=== PATIENT | male | born 1980 | race Caucasian/White ===

== ENCOUNTER 2019-07-18 15:19 | Emergency (ER) | payer OTHER ==
[2019-07-18 15:46] VITALS: TEMP 97.6
[2019-07-18] MEDS: HYDROcodone 7.5MG/APAP 325MG 1 EA TAB PO ONE (15:54)
[2019-07-18] MEDS: SULFA/TRIMETH 800/160 (DS) TAB 1 EA TAB PO ONE (15:54)
--- NOTE | 2019-07-18 15:54 | RAD ---
EXAM DESCRIPTION: Fingers,Left CLINICAL HISTORY: crush injury digits 2 3 COMPARISON: None. TECHNIQUE: 3 views left FINDINGS: Soft tissue swelling is observed in the second and third digits most pronounced about the proximal interphalangeal joints. A small metallic foreign body is observed along the radial side of the proximal interphalangeal joint of the second digit. Exam reveals minimal calcification along the radial side of the metacarpal phalangeal joint of the third digit. This may be the result of remote injury. No acute fracturing is detected. IMPRESSION: Soft tissue injury is observed in the second third digits about the proximal interphalangeal joints. There is also a small metallic foreign body adjacent to the proximal interphalangeal joint of the second digit. Electronically signed by: El Joe MD 07/18/2019 3:53 PM [facility]
--- NOTE | 2019-07-18 16:08 | ED.PDOC ---
History of Present Illness - General Chief Complaint: Skin/Abrasion/Tear Stated Complaint: left hand middle finger cut open at work Time Seen by Provider: 07/18/19 15:24 Source: patient Exam Limitations: no limitations - History of Present Illness Initial Comments: The patient is a 39-year-old male presenting to emergency room after having sustained a crush injury to the second and third digits of the left hand while working at the [employer]. Sensation does appear to be grossly intact. Range of motion also appears to be grossly intact. He does have mild swelling of the second digit but no laceration and fairly significant swelling of the third digit with a laceration to the lateral aspect of the palmar side of the third digit approximately an inch in length. Capillary refill is within normal limits. No evidence of vascular compromise at this point. There is significant swelling around the proximal interphalangeal joint. No crepitus. Timing/Duration: momentarily Severity: severe Improving Factors: nothing Worsening Factors: movement Associated Symptoms: denies symptoms Allergies/Adverse Reactions: Allergies NO KNOWN ALLERGY Allergy (Verified 01/31/16 16:19) Home Medications: Ambulatory Orders Sulfa/Trimeth 800/160 (Ds) Tab [Bactrim DS Tab] 1 ea PO BID #14 tab 07/18/19 Tramadol HCl 50 mg PO Q8HR PRN #20 tab 07/18/19 Review of Systems - Review of Systems Constitutional: States: no symptoms reported EENTM: States: no symptoms reported Respiratory: States: no symptoms reported Cardiology: States: no symptoms reported Gastrointestinal/Abdominal: States: no symptoms reported Genitourinary: States: no symptoms reported Musculoskeletal: States: see HPI Skin: States: see HPI Neurological: States: no symptoms reported Endocrine: States: no symptoms reported All other Systems: No Change from Baseline Past Medical History (General) - Patient Medical History Hx Asthma: No Hx Congestive Heart Failure: No Hx Hypertension: No Hx Diabetes: No - Vaccination History Hx Tetanus, Diphtheria Vaccination: No Hx Influenza Vaccination: No Hx Pneumococcal Vaccination: No - Social History Hx Tobacco Use: Yes - Activities of Daily Living Hospice Agency (if applicable):: None - Female History Patient is a Female of Child Bearing Age (10 -59 yrs old): No - Triage Comment ED Triage Comment: pt ambulated to ED trauma room without diffiuclty holding pressure to middle finger of left hand with personal shirt. pt voices he smashed his left hand fingers with drill collar at work. laceration to left side of left middle finger with small amount blood actively oozing from site. pt holding pressure with personal shirt. swelling noted to knuckle of middle finger to the left hand. pt conversing without difficulty at this time. Family Medical History - Family History Father Family History: Unknown Living Status: Unknown Physical Exam - Physical Exam General Appearance: Alert, No apparent distress Eye Exam: bilateral normal Ears, Nose, Throat: hearing grossly normal, normal pharynx - poor dentition Neck: full range of motion, supple Respiratory: no respiratory distress, no accessory muscle use Cardiovascular/Chest: normal peripheral pulses, no edema Peripheral Pulses: radial,right: 2+, radial,left: 2+ Rectal Exam: deferred Extremity: no pedal edema, no calf tenderness, normal capillary refill, other - ee history of present illness. There does not appear to be any tendon laceration though movement is somewhat limited at this point secondary to swelling. Neurologic: [employer] glaz[employer] II-XII nml as tested, no motor/sensory deficits, alert, normal mood/affect, oriented x 3 Skin Exam: other - bruising is developing over the second and third digits. Comments: Vital Signs - 24 hr 07/18/19 07/18/19 07/18/19 15:36 15:55 15:56 Temperature 97.6 F Pulse Rate [ 103 H 87 brachial] Respiratory 18 20 18 Rate Blood Pressure 150/91 140/96 [Left Arm] O2 Sat by Pulse 98 99 Oximetry Progress - Progress Progress: 07/18/19 16:10 the patient's 39-year-old male presenting to the emergency room secondary to a crush injury with associated laceration to the third digit of the left hand. There is also mild crush injury to the second digit. No evidence of any fracture or dislocation. No evidence of any tendon laceration. No evidence of any neurological deficit at this point. No evidence of vascular compromise at this point. Given the significant swelling to the third digit, I'm not going to repair the laceration today. the patient will return on Thursday for laceration repair once his swelling is subsiding. This is being done to prevent any vascular compromise over the next 24-48 hours, as swelling peaks. the wound was irrigated with approximately 750 cc of normal saline. The patient received a dose of Bactrim and a tetanus shot. the patient will change wet-to-dry dressings twice daily until the repair on Thursday. ER warnings were given for any worsening of symptoms. He will be written for some tramadol as well for pain control. Bactrim will be used as the antibiotic of choice for infection prevention. gregg hernández [id number] - Results/Orders Results/Orders: x-ray left hand shows no evidence of any fracture or dislocation. There is a old foreign body noted on the x-ray does not correspond with the current injury location. Departure - Departure Clinical Impression: Crush injury to finger Qualifiers: Encounter type: initial encounter Qualified Code(s): S67.10XA - Crushing injury of unspecified finger(s), initial encounter Laceration of finger of left hand Qualifiers: Encounter type: initial encounter Finger: middle finger Damage to nail status: without damage Foreign body presence: without foreign body Qualified Code(s): S61.213A - Laceration without foreign body of left middle finger without damage to nail, initial encounter Disposition: Discharge to Home or Self Care Condition: Fair Departure Forms: ED Discharge - Pt. Copy, Patient Portal Self Enrollment Instructions: Wound Care, Crush Injury (DC) Diet: regular diet Activity: no pushing/pulling with affected limb Prescriptions: Tramadol HCl 50 mg PO Q8HR PRN #20 tab PRN Reason: Moderate Pain Sulfa/Trimeth 800/160 (Ds) Tab [Bactrim DS Tab] 1 ea PO BID #14 tab Home Medications: Ambulatory Orders Sulfa/Trimeth 800/160 (Ds) Tab [Bactrim DS Tab] 1 ea PO BID #14 tab 07/18/19 Tramadol HCl 50 mg PO Q8HR PRN #20 tab 07/18/19 Additional Instructions: the patient's 39-year-old male presenting to the emergency room secondary to a crush injury with associated laceration to the third digit of the left hand. There is also mild crush injury to the second digit. No evidence of any fracture or dislocation. No evidence of any tendon laceration. No evidence of any neurological deficit at this point. No evidence of vascular compromise at this point. Given the significant swelling to the third digit, I'm not going to repair the laceration today. the patient will return on Thursday for laceration repair once his swelling is subsiding. This is being done to prevent any vascul ar compromise over the next 24-48 hours, as swelling peaks. the wound was irrigated with approximately 750 cc of normal saline. The patient received a dose of Bactrim and a tetanus shot. the patient will change wet-to-dry dressings twice daily until the repair on Thursday. ER warnings were given for any worsening of symptoms. He will be written for some tramadol as well for pain control. Bactrim will be used as the antibiotic of choice for infection prevention.
[2019-07-18] MEDS: TETANUS,DIPHTHERIA,PERTUSSIS 1 EA SYG IM ONE (16:15)
[2019-07-18 16:38] VITALS: BP 143/84; O2SAT 100
== END 2019-07-18 16:35 | disposition home or self-care (01) ==
LOC: ER 15:19
DX: S61.213A Laceration without foreign body of left middle finger without damage to nail, initial encounter (principal); S67.193A Crushing injury of left middle finger, initial encounter; S60.022A Contusion of left index finger without damage to nail, initial encounter; Z87.891 Personal history of nicotine dependence; W22.8XXA Striking against or struck by other objects, initial encounter; Y99.0 Civilian activity done for income or pay; Y92.69 Other specified industrial and construction area as the place of occurrence of the external cause